=== PATIENT | female | born 1985 | race Caucasian/White ===

== ENCOUNTER 2019-12-07 08:45 | Day surgery (SDC) | payer BC ==
[~2019-12-07] VITALS: Ht 167.6 cm; Wt 62.6 kg
[2019-12-07 09:09] LABS: HEMATOCRIT 41.9 % (36.0-48.0); HEMOGLOBIN 13.6 g/dL (12-16); MCH 28.5 pg (26.0-34.0); MCHC 32.5 g/dL (31.0-37.0); MCV 87.8 fL (80.0-100.0); MEAN PLATELET VOLUME 9.8 fL (7.4-10.4); RBC 4.77 10x6/uL (4.00-5.40); RDW 13.1 % (11.5-14.5); WBC 5.6 10x3/uL (4.8-10.8)
[2019-12-07 10:10] VITALS: BP 114/66; Ht 167.6 cm; Wt 62.6 kg
[2019-12-07 10:46] LABS: HCG URINE NEGATIVE (NEGATIVE)
--- NOTE | 2019-12-07 14:49 | NUR ---
WHEN PT WAS IN LITHOTOMY, SHE HAD WALE ARM BOARDS AND STRAPS ACROSS ARMS, LEGS AND PELVIS
--- NOTE | 2019-12-07 18:31 | NUR ---
1725 BLADDER SCAN REVEALS 175 CC IN BLADDER. CONTINUING WITH WIDE OPEN IVF AND ENCOURAGING PO INTAKE.
--- NOTE | 2019-12-07 20:30 | NUR ---
PATIENT HAS BEEN UNABLE TO VOID. PUSHING FLUIDS. PATIENT C/O RECTAL PAIN RATED AT 7 ON 0-10 SCALE, HYDROCODONE GIVEN PER EMAR. BLADDER SCAN SHOWS 433 ML FLUID IN BLADDER 2049 PATIENT VOIDS MODERATE AMOUNT IN TOILET. PAIN DECREASED TO 6. PATIENT READY FOR DISCHARGE, LEFT HAND PIV DC'D WITH TIP INTACT, DRESSING IN PERSONAL CLOTHING
--- NOTE | 2019-12-14 15:03 | OP ---
PATIENT NAME: SERGIO TEJADA MEDICAL RECORD: [id number] :85 LOCATION:D.OPS ADMISSION DATE: SURGEON: AGUSTO DE LUNA MD DATE OF OPERATION: 12/07/2019 PRINCIPAL DIAGNOSES: 1. Hematochezia. 2. Third-degree internal hemorrhoidal prolapse of the anus. 3. Intractably symptomatic external hemorrhoids. 4. Thigh and buttock nevi times 3. POSTOPERATIVE DIAGNOSES: 1. Hematochezia. 2. Third-degree internal hemorrhoidal prolapse of the anus. 3. Intractably symptomatic external hemorrhoids. 4. Thigh and buttock nevi times 3. 5. Anal skin tag. PROCEDURES: 1. Total colonoscopy to cecum. 2. Procedure for prolapse and hemorrhoids. 3. Excision of anal skin tag with closure. 4. 4-mm punch biopsies of the thigh and buttock nevi times 3. SURGEON: Agutso De Luna MD MARKETING COMMUNICATIONS SPECIALIST: None. BLOOD LOSS: Please see the anesthesia sheet. COMPLICATIONS: None. The risks, possible complications, and alternatives to the procedure were explained to the patient. She elects to proceed. The discussion specifically included, but was not limited to, bleeding requiring emergency reoperation, infection, the possible need for additional revisionary procedure or a wide excision of the nevi. OPERATIVE COURSE: The patient was conveyed to the operating room electively on 12/07/2019. General anesthesia was induced by anesthesia staff. The patient was placed in Miller position. A digital rectal examination was performed. A colonoscope was inserted through the anus. It was easily advanced to the cecum. The prep was excellent. I slowly withdrew the endoscope. I dragged the folds. A combination of normal imaging and narrow band imaging were utilized. The pullback was greater than 13-minute pullback. I noted no polyps, no masses, no diverticula, no arteriovenous malformations. A retroflexed view was obtained in the rectum. I then unretroflexed the scope and removed it under direct vision. The patient was then positioned in the lithotomy position with the buttocks taped laterally. The anus and perianal skin was sterilely prepped and draped. A PPH dilator retractor was placed. The retractor was sutured to the surrounding anoderm with 2-0 silks. A pursestring suture of 3-0 Prolene was applied 1 cm cephalad to the clear retractor. The PPH stapling device was OPERATIVE REPORT [id number] SERGIO TEJADA inserted with the anvil cephalad to the pursestring suture, which was then tightened and tied. The stapling device was engaged. It was held in place for 3 minutes and then fired. I then removed the stapling device under direct vision. There was an entire donut of internal hemorrhoidal and lower rectal mucosal tissue within the stapling device. Bleeding along the anastomotic staple line was controlled with [id number] 3-0 Vicryl sutures. The clear retractor was then removed. There was one large skin tag which was going to be hygienic problem. I elected to excise the skin tag. Through the use of double curvilinear incisions, I excised the skin tag. Care was paid not to injure the underlying sphincteric muscles. They were undamaged during the operation. Submucosal and subcutaneous flaps were created sharply. I then closed this defect with a running 3-0 Vicryl suture in a locking fashion for the mucosa and in a running fashion and then tied out on the anoderm. I went about performing punch biopsies of the 3 nevi. These were all 4 mm punch biopsies. Each punch biopsy site of the skin was closed with horizontal mattress 4-0 Vicryl Rapide suture. Dermabond was then applied. I then infiltrated a combination of Marcaine and a steroid preparation into perianal tissues. A topical anesthetic ointment was applied to the external hemorrhoids. I then packed Gelfoam within the anus and lower rectum. The patient was then extubated and conveyed to post-anesthesia care unit where she was in stable condition. She will be dismissed home on hydrocodone as well as Colace and Valium. I will see her in the office in 1-2 weeks to review the results of the biopsies. TRANSINT:[id number] Voice Confirmation ID: [id number] DOCUMENT ID: [id number] AGUSTO DE LUNA MD at 1503 CC: [id number] DICTATION DATE: 12/13/19 1635 [employer]IT[employer] S[employer] OPERATIONS SPECIALIST: 12/13/19 2350 [facility] 12/07/19 [place] [address]
== END 2019-12-07 20:55 | disposition home or self-care (01) ==
LOC: D.OPS 08:45 → D.PAN 09:45 → D.OPS 09:45 → D.PAN 10:30 → D.OPS 20:55
PROVIDERS: Anesthesiology; ATTEND Surgery
DX: K92.1 Melena (principal); K64.2 Third degree hemorrhoids; K64.4 Residual hemorrhoidal skin tags; D22.5 Melanocytic nevi of trunk